=== PATIENT | female | born 1940 | race Caucasian/White ===

== ENCOUNTER 2017-12-08 15:11 | Emergency (ER) | payer MEDICARE, OTHER ==
[~2017-12-08] VITALS: Ht 162.6 cm; Wt 90.7 kg
[~2017-12-08 15:11] MED LIST: UNK BP MED; ZOFRAN ODT4 MG PO
[2017-12-08] MEDS ORDERED: ZESTRIL40 MG PO (16:04)
[2017-12-08] MEDS ORDERED: VITAMIN D350000 UNIT PO (16:05)
[2017-12-08] MEDS ORDERED: ADALAT CC60 MG PO (16:06)
[2017-12-08] MEDS ORDERED: HYDROCHLOROTH12.5 M1 PO (16:07)
[2017-12-08] MEDS ORDERED: CIPRO500 MG PO (17:12)
--- NOTE | 2017-12-08 19:58 | EKG ---
[facility] [address] [facility] [place] [address] Signed Normal sinus rhythm Left ventricular hypertrophy with repolarization abnormality Abnormal ECG No previous ECGs available Confirmed by STU HERNANDEZ MD ([id number]) on 12/08/2017 7:57:57 PM Electronically Signed By: STU HERNANDEZ MD 12/08/171957 PATIENT NAME: JACKSON SHORE Electrocardiogram DATE OF : 40 PHYSICIAN: STU HERNANDEZ MD REPORT #: [id number] REPORT IS CONFIDENTIAL AND NOT TO BE RELEASED WITHOUT AUTHORIZATION
== END 2017-12-08 18:30 | disposition home or self-care (01) ==
LOC: ED 15:11
DX: N39.0 Urinary tract infection, site not specified (principal); I10 Essential (primary) hypertension; Z79.899 Other long term (current) drug therapy
CPT/HCPCS: 71046; 80053; 81001; 84484; 85025; 87077; 87088; 87186; 93005; 93010; 99283

== ENCOUNTER 2020-08-16 08:13 | Day surgery (SDC) | payer MEDICARE, OTHER ==
[~2020-08-16] VITALS: Ht 162.6 cm; Wt 95.0 kg
[~2020-08-16 08:13] MED LIST changes: +ADALAT CC60 MG PO; +CIPRO500 MG PO; +HYDROCHLOROTH12.5 M1 PO; +PROTONIX40 MG PO; +VITAMIN D350000 UNIT PO; +ZESTRIL40 MG PO; +ZOFRAN4 MG PO
--- NOTE | 2020-08-16 09:58 | NUR ---
08/16/20 0958 Antoinette Baez 0949- PT ARRIVES TO PACU AROUSABLE TO VOICE. PT DROWSY AND FALLS RIGHT BACK TO SLEEP WHEN NOT BEING TALKED TO. RESP EVEN AND UNLABORED. OXYGEN SAT HIGH 90'S TO 100% ON 3L VIA NC. 0957- OXYGEN TITRATED OFF.
--- NOTE | 2020-08-16 17:05 | OR ---
[facility] [address] [place], [place] [address] Signed DATE OF OPERATION: 08/16/2020 SURGEON: Harish Mccoy MD PREOPERATIVE DIAGNOSES: 1. Hyperplastic rectal polyp at 7 cm in 2009. 2. of colon cancer age 71. POSTOPERATIVE DIAGNOSES: 1. Single moderate-sized diverticulum at 40 cm (left colon). 2. Moderate internal hemorrhoids x2. PROCEDURE: Colonoscopy without biopsy. ESTIMATED BLOOD LOSS: None. INDICATIONS: Jackson is an 80-year-old female asked to see me for followup colonoscopy. 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 She remains in excellent shape. She still gets around town with the help of her five children. She told me she has never driven in her whole life. She has no lower GI complaints. She has no family history of colon cancer or polyps. However, her of colon cancer at age 71. She had a colonoscopy in 2001 with negative biopsy at the rectosigmoid junction. She then came in 2009 and had a tiny hyperplastic polyp taken out of the rectum at 7 cm. In the meantime she has no lower GI complaints. I gave her a pamphlet in the office on colonoscopy and we reviewed that together along with the risks including, but not limited to gas bloating, crampy abdominal pain, bleeding, perforation requiring surgery, and missed diagnosis. We also reviewed the need for IV conscious sedation. In addition, I explained to Jackson that at her age with 3 negative colonoscopies, this probably would be her last colonoscopy. She had expressed understanding and wished to proceed. DESCRIPTION OF PROCEDURE: Jackson was taken into our endoscopy suite and placed in the left lateral decubitus position. She was given 7 mg of Versed and 125 mcg of fentanyl to cover her case. A digital rectal exam was performed and this was unremarkable. She has good sphincter tone. The adult colonoscope was introduced and advanced under direct visualization of camera without difficulty. We saw a single moderate-sized diverticulum at 40 cm in the Electronically Signed By: HARISH MCCOY MD 08/16/20 1705 PATIENT NAME: JACKSON SHORE OPERATIVE REPORT DATE OF : 40 REPORT #: [id number] PHYSICIAN: HARISH MCCOY MD PCP: DARYL HARRELL MD REPORT IS CONFIDENTIAL AND NOT TO BE RELEASED WITHOUT AUTHORIZATION [address] [address] Signed left colon. We passed that all the way up into the cecum itself. We could easily see the appendiceal orifice and the ileocecal valve. We had taken pictures throughout for photodocumentation. The scope had been slowly withdrawn. Once again we passed that diverticulum at around 40 cm. No other diverticula that we saw. No polyps on this occasion. The rectum was unremarkable. Upon retroflexion of the scope, she has two moderate-sized internal hemorrhoid columns. After this, the gas was suctioned out. The colonoscope removed. Jackson tolerated the procedure quite well. RECOMMENDATIONS: Jackson can follow up as needed for repeat colonoscopy given her negative three colonoscopies in her age of 80. Harish Mccoy MD ALB/MODL /[id number] cc: MD Harish Adame MD Copies: DARYL HARRELL MD, ANDREW L MD ~ Electronically Signed By: HARISH MCCOY MD 08/16/20 1705 PATIENT NAME: JACKSON SHORE OPERATIVE REPORT DATE OF : 40 REPORT #: [id number] PHYSICIAN: HARISH MCCOY MD PCP: DARYL HARRELL MD REPORT IS CONFIDENTIAL AND NOT TO BE RELEASED WITHOUT AUTHORIZATION
== END 2020-08-16 10:30 | disposition home or self-care (01) ==
LOC: OPS 08:13 → DS 08:17 → OPS 10:15 → DS 10:30 → OPS 10:30
PROVIDERS: ATTEND Colon & Rectal Surgery
PROC: 0DJD8ZZ Inspection of Lower Intestinal Tract, Via Natural or Artificial Opening Endoscopic (ICD-10-PCS; principal; 2020-08-16 10:15)
DX: Z12.11 Encounter for screening for malignant neoplasm of colon (principal); K57.30 Diverticulosis of large intestine without perforation or abscess without bleeding; K64.8 Other hemorrhoids; I10 Essential (primary) hypertension; E78.00 Pure hypercholesterolemia, unspecified; K21.9 Gastro-esophageal reflux disease without esophagitis; E55.9 Vitamin D deficiency, unspecified; D50.9 Iron deficiency anemia, unspecified; Z79.1 Long term (current) use of non-steroidal anti-inflammatories (NSAID); Z79.899 Other long term (current) drug therapy; Z88.7 Allergy status to serum and vaccine; Z87.19 Personal history of other diseases of the digestive system; Z90.49 Acquired absence of other specified parts of digestive tract
CPT/HCPCS: 99153; G0500; J0690; J2250; J3010; J7121

== ENCOUNTER 2020-09-27 19:03 | Emergency (ER) | payer MEDICARE, OTHER ==
[~2020-09-27] VITALS: Ht 162.6 cm; Wt 94.8 kg
[2020-09-27] MEDS ORDERED: PRAVASTATIN SOD80 MG PO (20:38)
[2020-09-27] MEDS ORDERED: HYDROCODON-ACE1 EA10 PO (23:26)
== END 2020-09-27 23:36 | disposition home or self-care (01) ==
LOC: ED 19:03
DX: S20.212A Contusion of left front wall of thorax, initial encounter (principal); I10 Essential (primary) hypertension; Z88.7 Allergy status to serum and vaccine; Z79.899 Other long term (current) drug therapy; W19.XXXA Unspecified fall, initial encounter; Y92.000 Kitchen of unspecified non-institutional (private) residence as the place of occurrence of the external cause
CPT/HCPCS: 71101; 81001; 99285-25

== ENCOUNTER 2021-09-24 16:29 | Emergency (ER) | payer MEDICARE, OTHER ==
[~2021-09-24] VITALS: Ht 162.6 cm; Wt 94.8 kg
[~2021-09-24 16:29] MED LIST changes: +HYDROCODON-ACE1 EA10 PO; +PRAVASTATIN SOD80 MG PO
[2021-09-24] MEDS ORDERED: METOPROLOL SUCC25 MG PO (18:56)
[2021-09-24] MEDS ORDERED: DICYCLOMINE HCL20 MG PO (21:50)
--- NOTE | 2021-09-26 11:26 | EKG ---
[facility] [place] [facility] [address] [facility] [place] [address] Signed Normal sinus rhythm Moderate voltage criteria for LVH, may be normal variant ( R in aVL , [place] product ) Nonspecific T wave abnormality Abnormal ECG When compared with ECG of 08-DEC-2017 16:08, No significant change was found Confirmed by STU HERNANDEZ MD ([id number]) on 09/26/2021 11:26:18 AM Electronically Signed By: STU HERNANDEZ MD 09/26/21 1126 PATIENT NAME: JACKSON SHORE Electrocardiogram DATE OF : 40 PHYSICIAN: STU HERNANDEZ MD REPORT #: [id number] REPORT IS CONFIDENTIAL AND NOT TO BE RELEASED WITHOUT AUTHORIZATION
--- NOTE | 2021-09-26 18:10 | NUR ---
PTS RESULTS FOR INCYTE COVID SWAB REPORTED OUT TO SOFTWARE REQUIREMENTS ENGINEER POSITIVE. CALLED PT TO LET HER KNOW THE RESULTS. STATES SHE IS FEELING WELL AND WILL FOLLOW UP NEEDED.
== END 2021-09-24 23:25 | disposition home or self-care (01) ==
LOC: ED 16:29
DX: E87.6 Hypokalemia (principal); R19.7 Diarrhea, unspecified; I10 Essential (primary) hypertension; N17.9 Acute kidney failure, unspecified; Z20.822 Contact with and (suspected) exposure to COVID-19; Z79.899 Other long term (current) drug therapy
CPT/HCPCS: 71045; 80053; 83735; 85025; 93005; 93010; 99284-25; C9803; J7121; U0003